=== PATIENT | female | born 1970 | race Caucasian/White ===

== ENCOUNTER 2023-09-18 10:50 | Day surgery (SDC) | payer BC, SELFPAY ==
--- NOTE | 2023-09-18 | LES_PTH ---
PATIENT: ION JETT LOC: [facility] [place] U#:[id number] AGE/SX: 53/F ROOM: RE09/18/[address]: Dr. Miracle Bui MD : [id number] BED: DIS: 09/18/2023 SPEC #: [id number] RECD: 09/18/23 13:52 STATUS: KRISTEN RETien #: [id number] RADHA: 09/18/23 00:[address]: Miracle Bui DEPT: SURGICAL PATHOLOGY RECD BY: Adalid Vazquez ENTERED: 09/19/23 09:33 SP TYPE: Lesion OTHR DR: Dr. Lloyd Butterfield MD Tissues: A - Skin of eyelid, NOS B - Skin of eyelid, NOS Procedures: Surgery Specimen Level IV HEADER OPERATION: Excision lesion right and left upper eyelid )1.0cm, 0.5cm) PRE-OP DIAGNOSIS: Neoplasms in the bilateral periocular area TISSUE SUBMITTED: A- Lesion right upper eyelid, B- Lesion left upper eyelid MICROSCOPIC DIAGNOSIS A. Skin lesion right upper eyelid, biopsy: Consistent with Xanthelasma. B. Lesion of left upper eyelid, biopsy: Consistent with Xanthelasma. [facility] 09/22/23 MICROSCOPIC DESCRIPTION Slides are reviewed. GROSS DESCRIPTION A. Received in fixative is one container labeled with the patient's name and designated Lesion right upper eyelid. The specimen consists of a piece of pearson white skin ellipse measuring 0.7 x 0.5 x 0.3cm. The specimen is inked, serially sectioned and submitted entirely in one cassette. B. Received in fixative is one container labeled with the patient's name and designated Lesion left upper eyelid. The specimen consists of a piece of pearson white skin measuring 0.5 x 0.2 x 0.1cm. The specimen is inked, serially sectioned and submitted entirely in one cassette. [facility] 09/19/23 TC:5 CPT: 43391u3
[2023-09-18 11:24] VITALS: BP 102/62; PULSE 76; RESP 16; TEMP 37.3; O2SAT 99; BMI 30.4
--- NOTE | 2023-09-18 12:24 | PCM.HP.BLA ---
History and Physical Date of Admission: 09/18/23 Patient is examined and there are no changes to the history and physical dated 08/27/2023. She presents with neoplasms in the bilateral periocular area. She presents for excision with submission for pathologic evaluation. 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
[2023-09-18 12:43] VITALS: BP 103/83; BP 106/68; BP 107/67; BP 107/82; O2SAT 100; O2SAT 98; O2SAT 99
[2023-09-18] MEDS: Povidone Iodine 30 ML Opthalmic Sol 1 DRP (13:00)
[2023-09-18] MEDS: Lidocaine 1% /Epi 1:100 9 ML, Sodium Bicarbonate 1 MEQ OPERA.SITE (13:04)
--- NOTE | 2023-09-18 13:34 | DCINST_ITS ---
Discharge Instructions Dressing / Incision Additional Dressing/Incision Instructions:: Keep your head elevated (recliner position) for the next 3 nights to reduce swelling and bruising. Keep the Steri-Strips dry and intact until seen in the office. Take the oral antibiotic (Keflex) 2 times a day until finished. Follow Up Care Please Follow Up With: Miracle Bui MD When: In 1 to 2 weeks Test Results: Test results from this visit will be discussed in further detail at your follow- up appointment, if applicable. Discharge Plan Admission Attending Provider: Miracle Bui Primary Care Provider: Lloyd Butterfield Discharge Orders/Prescriptions Prescriptions: New cephalexin 500 mg capsule 500 mg PO BID 5 Days Qty: 10 0RF No Action Ozempic 1 mg/dose (4 mg/3 mL) pen injector 1 mg subcut QWEEK famotidine 20 mg tablet 20 mg PO BID metformin 500 mg tablet 500 mg PO BID magnesium oxide 250 mg magnesium tablet 250 mg PO DAILY pitavastatin calcium 2 mg tablet 2 mg PO DAILY Rx Instructions: 1 per day on fri, fri, friday losartan-hydrochlorothiazide 50-12.5 mg tablet 1 tab PO DAILY trazodone 100 mg tablet 100 mg PO DAILY Referrals / Follow Up: Lloyd Butterfield MD [Primary Care Provider] - Disposition Disposition (needs filled in before D/C Order can be placed): Home, Self Care
--- NOTE | 2023-09-18 13:37 | PCM.OPRPT ---
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 She presents for excision of the lesions with submission for pathologic evaluation. She has a history of elevated cholesterol which is now controlled. The patient was brought to the operating room and placed on the operating room table in supine position. The upper eyelids are prepped and draped in the usual sterile fashion. 1% Xylocaine with epinephrine buffered with sodium bicarb is used for local anesthetic. Following this, the sizer excised and passed off the operative field to be sent to pathology. Hemostasis is controlled with cautery. The incisions were then closed with a running fast-absorbing gut suture. Dermabond and Steri-Strips are placed on the site. The identical procedure was performed on the opposite side. The specimens were both passed off the field to be sent to pathology as separate specimens. She tolerated the procedure well and was taken to the recovery area in an awake and stable condition. Needle and sponge counts are correct. Complications None Admit VTE Documentation VTE Mechan Device Prophylaxis: None Reason prophylaxis not ordered:: Treatment Not Indicated
[2023-09-18 13:58] VITALS: BP 116/62; PULSE 70; RESP 16; TEMP 36.6; O2SAT 100
== END 2023-09-18 14:00 | disposition home or self-care (01) ==
LOC: SDC 10:58 → AC 11:01
PROVIDERS: PCP Internal Medicine; Referring Provider Internal Medicine; Visit Provider Plastic Surgery
PROC: (CPT 11442; principal; 2023-09-18 13:25)
DX: H02.61 Xanthelasma of right upper eyelid (principal); H02.64 Xanthelasma of left upper eyelid; D48.5 Neoplasm of uncertain behavior of skin; E78.00 Pure hypercholesterolemia, unspecified; Z79.84 Long term (current) use of oral hypoglycemic drugs; Z79.899 Other long term (current) drug therapy
CPT/HCPCS: 11442; 00300; 88305